=== PATIENT | female | born 1950 | race Caucasian/White ===

== ENCOUNTER → 2025-02-16 10:34 | Outpatient (CLI) | payer MEDICARE, OTHER, SELFPAY ==
--- NOTE | 2025-02-16 10:36 | DI.NM.S_ITS ---
PROCEDURE: NM EXERCISE TREADMILL NON NUC COMPARISON: None INDICATIONS: SOB FINDINGS: Rest ECG sinus rhythm 75 bpm. Abram protocol 6:01, max heart rate 140 bpm, peak blood pressure 190/80, 7.0 METS, ALEX -15%. Exercise ECG, sinus tachycardia, no ST shanges or asshythmia. The patient did not report chest pain but demonstrated moderate shortness of breath. IMPRESSION: Low risk study. No evidence of exercise induced ischemia or arrhythmia. Normal hemodynamic response. Good exercise capacity. Dictated by: Bisi Vázquez D.O. on 02/16/2025 at 16:08 Approved by: Bisi Vázquez D.O. on 02/16/2025 at 16:13
== END ==
LOC: NUCM 10:36
PROVIDERS: PCP Student in an Organized Health Care Education/Training Program; Referring Provider Student in an Organized Health Care Education/Training Program; Visit Provider Student in an Organized Health Care Education/Training Program
DX: R06.02 Shortness of breath (principal); E78.00 Pure hypercholesterolemia, unspecified
CPT/HCPCS: 93017